=== PATIENT | female | born 1990 | race Caucasian/White ===

== ENCOUNTER → 2017-09-24 12:47 | Outpatient (CLI) | payer OTHER, SELFPAY | PROVIDERS: PCP Internal Medicine; Visit Provider Internal Medicine | DX: J02.9 Acute pharyngitis, unspecified (principal); R50.9 Fever, unspecified | CPT/HCPCS: 87070 ==

== ENCOUNTER → 2017-10-14 11:42 | Outpatient (CLI) | payer OTHER, SELFPAY ==
[2017-10-14 12:14] LABS: Add Manual Diff / Slide Review NO; Basophils Percent Auto 0.2 % (0-2); Hematocrit 40.6 % (36-46); Hemoglobin 13.9 g/dL (12.0-16.0); Lymphocytes Percent Auto 32.5 % (25-40); Mean Corpuscular HGB Conc 34.3 % (30-36); Mean Corpuscular Hemoglobin 30.8 PG (26-34); Monocytes Percent Auto 8.7 % (3-14); Neutrophils Absolute Auto 3200 /uL (3000-5900); Neutrophils Percent Auto 56.6 % (50-75); Platelet Count 200 X10^3/uL (150-400); Red Blood Cell Count 4.51 X10^6/uL (4.0-5.2); Red Cell Distribution Width 13.1 % (11.6-14.8); White Blood Cell Count 5.7 X10^3/uL (4.5-11.0)
[2017-10-14 15:43] LABS: Hepatitis B Surface Antigen NEGATIVE s/c (NEGATIVE)
[2017-10-14 16:04] LABS: HIV 1 and 2 Antibody NEGATIVE (NEGATIVE); Hep C Virus Ab w/Reflex Quant NEGATIVE s/c (NEGATIVE)
[2017-10-16 15:42] LABS: HSV1IGG 6.99 index (< 0.90)
[2017-10-16 16:33] LABS: Varicella IgG Antibody < 135.00 Index (< 135.00)
[2017-10-20 14:44] LABS: Rapid Plasma Reagin NON-REACTIVE
== END ==
PROVIDERS: Obstetrics & Gynecology; PCP Internal Medicine; Visit Provider Internal Medicine
DX: Z34.91 Encounter for supervision of normal pregnancy, unspecified, first trimester (principal)
CPT/HCPCS: 36415; 80055; 86695; 86696; 86703; 86787; 86803; 86850; 86900; 86901; 87086

== ENCOUNTER → 2017-10-22 09:21 | Outpatient (CLI) | payer OTHER, SELFPAY ==
[2017-10-22 11:55] LABS: HCG Quantitative /Beta subunit 58230 mIU/mL
== END ==
PROVIDERS: PCP Internal Medicine; Visit Provider Obstetrics & Gynecology
DX: O02.0 Blighted ovum and nonhydatidiform mole (principal)
CPT/HCPCS: 36415; 84702

== ENCOUNTER → 2017-10-24 12:13 | Outpatient (CLI) | payer OTHER, SELFPAY ==
[2017-10-24 16:15] LABS: HCG Quantitative /Beta subunit 45723 mIU/mL
== END ==
PROVIDERS: PCP Internal Medicine; Visit Provider Obstetrics & Gynecology
DX: O02.0 Blighted ovum and nonhydatidiform mole (principal)
CPT/HCPCS: 84702

== ENCOUNTER 2017-10-31 10:45 | Day surgery (SDC) | payer OTHER, SELFPAY ==
[2017-10-30 12:38] VITALS: BMI 30.8
[2017-10-31] VITALS (8 sets, daily range): BP systolic 103–128; BP diastolic 62–84; PULSE 66–97; RESP 12–16; TEMP 36.3–37; O2SAT 92–100; BMI 29.4
--- NOTE | 2017-10-31 | PATH_ITS ---
[facility] Accession Number: [id number] . 01 Material submitted: . UTERINE CONTENTS . 02 Diagnosis: Uterine Contents: Products of conception identified. MRV/11/03/2017 . 02 Electronically signed: . Gabriela Hernández MD, Pathologist NPI- [id number] . 01 Gross description: . Received one formalin-filled container, labeled with the patient's name and labeled uterine contents are multiple portions of pink-mckeon tissue and mucoid material which aggregate to 4.5 x 3.0 x 1.0 cm. The specimen is entirely submitted in four cassettes. ([place] [place] [id number] . /OZO . 02 Pathologist provided ICD-10: O02.1 . 02 CPT . 595564 Performed at: 01 [facility] [address] [place] [address], [place], [place] [id number] MD Pelon Beltran MD Phone: [phone] Performed at: 02 [facility] [address] [place], [place] [id number] MD David Austin MD Phone: [phone]
[2017-10-31] MEDS: LACTATED RINGERS 1,000 ML 42 ML IV (11:44)
--- NOTE | 2017-10-31 13:41 | PM.PREOP ---
Pre-operative Note Interval Note Pre-op Check: Yes History & Physical exam performed today by Physician Changes: No
--- NOTE | 2017-10-31 14:10 | SUR.OPER ---
Lithotomy on padded OR bed, head on pillow, arms secured on padded arm boards at <90 degrees abduction. Legs secured in padded yellow fins stirrups.
--- NOTE | 2017-10-31 15:11 | SUR.PHASEII ---
Report given to Keerthi RICE .
--- NOTE | 2017-11-20 14:02 | PM.GYNOP.1 ---
Operative Date/Time/Diagnoses Date of procedure: 10/31/17 Time of procedure: 12:30 Pre-op diagnosis: Missed at 8 weeks Post-op diagnosis: same Procedure: Procedures Operation Date: 10/31/17 12:15 Actual Procedures Side Surgeon p Dilation and Curettage-Suction Maren Nelson MD Indications: Missed at 8 weeks Surgeon: Maren Nelson Anesthesia Type: General Operative Notes Findings: 8 week size anteverted uterus Large amount of products of conception Closure Type: not applicable Specimen(s): uterine contents (Products of conception) Applied: catheter (In and out) Estimated blood loss (mL): 100 Blood products transfused: none Procedure in detail: After informed consent was obtained, the patient was taken to the operating room where she was placed in the dorsal supine position. After adequate LMA general anesthesia was achieved, she was placed in the dorsal lithotomy position, and prepped and draped in the usual sterile fashion. A time-out was performed. A bivalve speculum was placed into the vagina, and the anterior lip of the cervix grasped with a single-tooth tenaculum. The cervical os was sequentially dilated until the 8. Curved plastic curette could pass easily into the endometrial cavity. Several passes with suction revealed a large amount of tissue and fluid. The suction curette was removed from the uterus. Gentle sharp curettage was performed yielding minimal amount of tissue. Several passes with suction revealed blood only. The instruments were removed from the uterus. The single-tooth tenaculum was removed from the anterior lip of the cervix. The bivalve speculum was removed from the vagina. Sponge, lap, and instrument counts were correct x2. The patient tolerated the procedure well, and was taken to PACU in stable condition. Complications: none Post-operative Condition: stable Disposition: PACU Plan for aftercare: Home after recovery
== END 2017-10-31 15:29 | disposition home or self-care (01) ==
PROVIDERS: Visit Provider Obstetrics & Gynecology
PROC: (CPT 58120; principal; 2017-10-31 12:15)
DX: O02.1 Missed abortion (principal); Z3A.08 8 weeks gestation of pregnancy
CPT/HCPCS: 59820; J1100; J1885; J2250; J2405; J2704; J3010

== ENCOUNTER 2017-11-28 09:43 | Day surgery (SDC) | payer OTHER, SELFPAY ==
[2017-11-27 15:07] VITALS: BMI 30.8
--- NOTE | 2017-11-28 | PATH_ITS ---
[facility] Accession Number: [id number] . 01 Material submitted: . RETAINED PRODUCTS OF CONCEPTION . 02 Diagnosis: Retained Products of Conception: Chorionic villi present. No evidence of malignancy. MRV/12/01/2017 . 02 Electronically signed: . Neville Will MD, PhD, Pathologist NPI- [id number] . 01 Gross description: . Received in formalin, labeled retained POC are multiple fragments of red-brown and sheikh-white tissue (7.5 x 6.5 x 1.2 cm in aggregate). No tissue is identified. Associate Professor Of Physics tissue is submitted in cassettes A1-A4. ([id number]) /MRV . 02 Pathologist provided ICD-10: O02.1 . 02 CPT . 982831 Specimen Comment: A duplicate report has been generated due to demographic updates. Performed at: 01 [facility] [address] [place] [address], [place], [place] [id number] MD Pelon Beltran MD Phone: [phone] Performed at: [address] [facility] [address] [place], [place] [id number] MD David Austin MD Phone: [phone]
[2017-11-28 09:58] VITALS: BMI 30.8
[2017-11-28 10:17] VITALS: BP 114/77; PULSE 89; RESP 15; TEMP 36.3; O2SAT 99
[2017-11-28] MEDS: LACTATED RINGERS 1,000 ML 42 ML IV (10:22)
--- NOTE | 2017-11-28 10:29 | PM.PREOP ---
Pre-operative Note Interval Note Pre-op Check: Yes History & Physical exam performed today by Physician Changes: No
--- NOTE | 2017-11-28 10:30 | SUR.OPER ---
Lithotomy on padded OR bed, head on pillow, arms secured on padded arm boards at <90 degrees abduction. Legs secured in padded yellow fins stirrups.
[2017-11-28 11:15] VITALS: BP 114/76; PULSE 82; RESP 14; TEMP 37.1; O2SAT 97
[2017-11-28 11:20] VITALS: BP 112/81; PULSE 87; RESP 20; O2SAT 94
[2017-11-28 11:25] VITALS: BP 114/82; PULSE 80; RESP 20; O2SAT 98
[2017-11-28] MEDS: OXYCODONE/ACETAMINOPHEN 5/325 TABLET 1 TAB PO (11:25)
--- NOTE | 2017-11-28 11:46 | SUR.PHASEII ---
Moderate amt of intermittent vaginal bleeding. Pad changed. Call light provided. Spouse at bedside.
[2017-11-28 11:53] VITALS: BP 104/66; PULSE 59; RESP 16; TEMP 36.6; O2SAT 100
--- NOTE | 2017-11-29 10:46 | PM.GYNOP.1 ---
Operative Date/Time/Diagnoses Date of procedure: 11/28/17 Time of procedure: 11:45 Pre-op diagnosis: Retained products of conception Post-op diagnosis: same Procedure: Procedures Operation Date: 11/28/17 10:45 Actual Procedures Side Surgeon p Dilation and Curettage-suction Maren Nelson MD Indications: Retained products of conception by ultrasound Surgeon: Maren Nelson Anesthesia Type: General (LMA) Operative Notes Findings: 8 week size anteverted uterus Large amount of retained products including a 3 cm x 1 cm piece of placenta and attached membranes Closure Type: not applicable Specimen(s): uterine contents (Retained products of conception) Applied: catheter (In and out) Estimated blood loss (mL): 100 Blood products transfused: none Procedure in detail: After informed consent was obtained, the patient was taken to the operating room where she was placed in the dorsal supine position. After adequate LMA general anesthesia was achieved, she was placed in the dorsal lithotomy position, and prepped and draped in the usual sterile fashion. A time-out was performed. A bivalve speculum was placed into the vagina and the anterior lip of the cervix grasped with a single-tooth tenaculum. The cervical os was sequentially dilated until the # 8 curved plastic curette could pass easily into the endometrial cavity. Several passes with suction revealed some tissue and membranes. The curette was removed. Polyp forceps were used to grasp a large piece of placenta that was still attached to the posterior wall. This came out with attached membranes. Several more passes with the curette revealed blood only. Gentle sharp curettage was performed yielding minimal amount of blood. There was minimal amount of bleeding coming from the cervical os. The instruments were removed from the uterus. The single-tooth tenaculum was removed the anterior lip of the cervix. The bivalve speculum was removed from the vagina. Sponge, lap, and instrument counts were correct x2. The patient tolerated the procedure well, and was taken to PACU in stable condition. Complications: none Post-operative Condition: stable Disposition: PACU Plan for aftercare: Home after recovery
--- NOTE | 2018-03-06 09:02 | PM.HP.1 ---
History of Present Illness Date Patient Seen: 11/28/17 Time Patient Seen: 09:45 Chief complaint: [id number] Narrative: Patient is a 28-year-old 1 para 0 with retained products of conception after a miscarriage Patient History Medical History Acne (Chronic) Hearing loss (Chronic ~2014) Knee injury (Chronic ~2014) Migraines (Chronic ~2013) Surgical History S/P D&C (status post dilation and curettage) (Resolved ~10/31/17) [place] teeth extracted (Resolved) Family & Social History Social History: household members spouse Tobacco & Substance use: Smoking Status Never smoker alcohol intake former Substance Use Type does not use Meds Home Medications Medication Instructions Recorded Confirmed Type 1 tab PO DAILY 09/24/17 11/28/17 History vitamin,calcium,qjafysmb-wopt-imlae acid tablet varicella virus vaccine live (PF) 0.5 ml SUBCUT ONCE #1 each 11/19/17 11/28/17 Rx 1,350 unit/0.5 mL subcutaneous susp sumatriptan 100 mg tablet 100 mg PO .COMPLEX PRN #9 tab 12/15/17 Rx Allergies Allergy/AdvReac Type Severity Reaction Status Date / Time No Known Drug Allergies Allergy Verified 12/15/17 14:58 Exam Vital Signs (past 8 hours): Oxygen Delivery Method Room Air Narrative Exam Narrative: HEENT: No thyromegaly, no anterior cervical or supraclavicular lymphadenopathy. Lungs:Clear to auscultation bilaterally, no wheezes. Cardiovascular: Regular rate and rhythm, no murmurs, rubs, or gallops. Abdomen: No scars. No hepatosplenomegaly. No masses palpable. External genitalia: Normal Vagina: Normal Cervix: Normal Bimanual exam: 8 Week size uterus. Mobile. Rectal: No masses. Assessment & Plan (1) Retained products of conception: Current visit: No Status: Acute Plan: Assessment/Plan Narrative: Assessment: 28-year-old 1 para 0 with retained products of conception after miscarriage Plan: Suction D&C The risks, benefits, and alternatives to the procedure were explained to the patient. The risks including bleeding, infection, and uterine perforation. She understands these risks and agrees to proceed. A full PAR-Q was held and consent form was signed.
== END 2017-11-28 12:11 | disposition home or self-care (01) ==
PROVIDERS: Visit Provider Obstetrics & Gynecology
PROC: (CPT 58120; principal; 2017-11-28 10:45)
DX: O03.4 Incomplete spontaneous abortion without complication (principal)
CPT/HCPCS: 59812; J1100; J1885; J2405; J2704

== ENCOUNTER → 2018-04-08 09:05 | Outpatient (CLI) | payer OTHER, SELFPAY ==
[2018-04-08 09:39] LABS: Glucose 95 mg/dL (70-100)
[2018-04-08 09:52] LABS: Follicle Stimulating Hormone 4.36 mIU/mL
[2018-04-08 10:47] LABS: Free T4, Direct Thyroxine 1.38 ng/dL (0.78-2.19)
[2018-04-09 15:36] LABS: Insulin Level Total 6.5 uIU/mL (2.0-19.6)
== END ==
PROVIDERS: Visit Provider Obstetrics & Gynecology
DX: N97.0 Female infertility associated with anovulation (principal)
CPT/HCPCS: 36415; 82947; 83001; 83002; 83525; 84439; 84443

== ENCOUNTER → 2018-05-25 16:01 | Outpatient (CLI) | payer OTHER, SELFPAY ==
[2018-05-25 19:35] LABS: HCG Quantitative /Beta subunit < 2.39 mIU/mL
== END ==
PROVIDERS: Visit Provider Obstetrics & Gynecology
DX: N91.2 Amenorrhea, unspecified (principal)
CPT/HCPCS: 36415; 84702

== ENCOUNTER → 2018-07-24 09:59 | Outpatient (CLI) | payer OTHER, SELFPAY ==
[2018-07-24 10:53] LABS: HCG Quantitative /Beta subunit 307.67 mIU/mL
== END ==
PROVIDERS: Visit Provider Obstetrics & Gynecology
DX: N91.2 Amenorrhea, unspecified (principal)
CPT/HCPCS: 36415; 84702

== ENCOUNTER → 2018-07-28 11:03 | Outpatient (CLI) | payer OTHER, SELFPAY | PROVIDERS: Visit Provider Obstetrics & Gynecology | DX: N91.2 Amenorrhea, unspecified (principal); Z87.59 Personal history of other complications of pregnancy, childbirth and the puerperium | CPT/HCPCS: 36415; 84702 ==

== ENCOUNTER → 2018-08-03 11:42 | Outpatient (CLI) | payer OTHER, SELFPAY ==
[2018-08-03 13:24] LABS: HCG Quantitative /Beta subunit 10065 mIU/mL
== END ==
PROVIDERS: PCP Specialist; Visit Provider Obstetrics & Gynecology
DX: O09.299 Supervision of pregnancy with other poor reproductive or obstetric history, unspecified trimester (principal); O46.90 Antepartum hemorrhage, unspecified, unspecified trimester; Z3A.01 Less than 8 weeks gestation of pregnancy
CPT/HCPCS: 36415; 84702

== ENCOUNTER → 2018-08-05 11:23 | Outpatient (CLI) | payer OTHER, SELFPAY ==
[2018-08-05 12:38] LABS: HCG Quantitative /Beta subunit 13521 mIU/mL
== END ==
PROVIDERS: PCP Specialist; Visit Provider Obstetrics & Gynecology
DX: N96 Recurrent pregnancy loss (principal); O20.9 Hemorrhage in early pregnancy, unspecified
CPT/HCPCS: 36415; 84702

== ENCOUNTER → 2018-08-28 11:19 | Outpatient (CLI) | payer OTHER, SELFPAY ==
[2018-08-28 12:51] LABS: Add Manual Diff / Slide Review NO; Basophils Absolute Auto 0 /uL (0-100); Basophils Percent Auto 0.4 % (0-2); Eosinophils Absolute Auto 100 /uL (0-450); Eosinophils Percent Auto 3.1 % (2-4); Hematocrit 43.7 % (36-46); Hemoglobin 14.8 g/dL (12.0-16.0); Lymphocytes Absolute Auto 1700 /uL (1100-4500); Lymphocytes Percent Auto 38.7 % (25-40); Mean Corpuscular HGB Conc 33.8 % (30-36); Mean Corpuscular Volume 91.8 fL (80-100); Monocytes Absolute Auto 400 /uL (0-900); Monocytes Percent Auto 9.4 % (3-14); Neutrophils Absolute Auto 2100 /uL (1500-7000); Neutrophils Percent Auto 48.4 % (50-75); Platelet Count 200 X10^3/uL (150-400); Red Blood Cell Count 4.76 X10^6/uL (4.0-5.2); White Blood Cell Count 4.4 X10^3/uL (4.5-11.0)
[2018-08-28 13:09] LABS: Appearance Urine UA CLEAR; Bilirubin Urine UA NEGATIVE (NEGATIVE); Color Urine UA YELLOW; Glucose Urine UA NEGATIVE (Negative); Ketones Urine UA NEGATIVE (NEGATIVE); Leukocyte Esterase Urine UA NEGATIVE (NEGATIVE); Nitrite Urine UA NEGATIVE (Negative); Occult Blood Urine UA 1+ (Negative); Protein Urine UA NEGATIVE (Negative); Urobilinogen Urine UA 0.2 E.U./dL (0.2); pH Urine UA 7.5 (4.5-8.0)
[2018-08-28 14:36] LABS: HCG Quantitative /Beta subunit 21812 mIU/mL
[2018-08-28 14:39] LABS: Urine N gonorrhoeae NOT DETECTED
[2018-08-28 14:45] LABS: Urine Chlamydia NOT DETECTED
[2018-08-28 16:31] LABS: Hepatitis B Surface Antigen NEGATIVE s/c (NEGATIVE); Rubella Antibody IgG 82.3 IU/mL (>15)
[2018-08-28 16:48] LABS: HIV 1 and 2 Antibody NEGATIVE (NEGATIVE); Hep C Virus Ab w/Reflex Quant NEGATIVE s/c (NEGATIVE)
[2018-08-29 16:06] LABS: Varicella IgG Antibody < 135.00 Index (< 135.00)
[2018-08-31 06:41] LABS: RPR Screen Nonreactive (Nonreactive)
== END ==
PROVIDERS: Visit Provider Obstetrics & Gynecology
DX: Z34.91 Encounter for supervision of normal pregnancy, unspecified, first trimester (principal)
CPT/HCPCS: 36415; 80055; 81003; 84702; 86703; 86787; 86803; 86850; 86900; 86901; 87086; 87491; 87591

== ENCOUNTER → 2018-08-31 09:27 | Outpatient (CLI) | payer OTHER, SELFPAY ==
[2018-08-31 12:01] LABS: HCG Quantitative /Beta subunit 17960 mIU/mL
[2018-08-31 12:05] LABS: Urine N gonorrhoeae NOT DETECTED
[2018-08-31 12:15] LABS: Urine Chlamydia NOT DETECTED
== END ==
PROVIDERS: Visit Provider Obstetrics & Gynecology
DX: O20.0 Threatened abortion (principal); Z34.01 Encounter for supervision of normal first pregnancy, first trimester
CPT/HCPCS: 36415; 84702; 87491; 87591

== ENCOUNTER → 2018-11-05 11:39 | Outpatient (CLI) | payer OTHER, SELFPAY ==
[2018-11-05 13:11] LABS: Free T4, Direct Thyroxine 1.21 ng/dL (0.78-2.19)
[2018-11-05 13:25] LABS: Thyroid Stimulating Hormone 1.04 uIU/mL (0.47-4.68)
[2018-11-05 16:14] LABS: Progesterone, Total 1.24 ng/mL
[2018-11-10 11:41] LABS: Protein C Activity 84 % normal (70-180)
[2018-11-11 08:34] LABS: PTT-LA Screen 39 seconds (< OR = 40); dDRVVT Screen 37 seconds (< OR = 45)
[2018-11-13 09:00] LABS: B2-Glycoprotein I IgA AB < 9 SAU (< OR = 20); B2-Glycoprotein I IgG AB < 9 SGU (< OR = 20); B2-Glycoprotein I IgM AB < 9 SMU (< OR = 20); Cardiolipin Ab IgA < 11 APL; Cardiolipin Ab IgG < 14 GPL; Cardiolipin Ab IgM < 12 MPL; Phos. Serine AB IgM < 25 U/mL
== END ==
PROVIDERS: Visit Provider Obstetrics & Gynecology
DX: N96 Recurrent pregnancy loss (principal)
CPT/HCPCS: 36415; 81240; 81241; 81291; 84144; 84439; 84443; 85303; 85306; 85597; 85613; 85730; 86146; 86147; 86148